=== PATIENT | male | born 1975 | race Two or more races ===

== ENCOUNTER 2018-12-02 07:29 | Emergency (ER) | payer OTHER ==
[~2018-12-02] VITALS: Ht 170.2 cm; Wt 75.0 kg
[2018-12-02] MEDS ORDERED: KETOROLAC 60MG/2ML VIAL IM ONE (08:30)
[2018-12-02 09:17] VITALS: BP 115/62
== END 2018-12-02 09:17 | disposition left against medical advice (07) ==
LOC: ER 07:29
DX: B34.9 Viral infection, unspecified (principal)
CPT/HCPCS: 96372; 99283; J1885

== ENCOUNTER 2019-04-06 11:55 | Emergency (ER) | payer OTHER ==
[~2019-04-06] VITALS: Ht 167.6 cm; Wt 63.0 kg
[2019-04-06] MEDS ORDERED: KETOROLAC 30MG/ML VIAL IV ONE (13:00)
[2019-04-06] MEDS ORDERED: ONDANSETRON HCL 4MG/2ML INJ IV ONE (13:00)
[2019-04-06 13:18] LABS: BASOPHILS % 0.5 % (0.0-2.0); EOSINOPHILS % 2.7 % (0.0-5.0); HEMATOCRIT. 41.8 % (42.0-52.0); HEMOGLOBIN. 14.7 g/dL (14.0-18.0); LYMPHOCYTES % 10.2 % (20.0-50.0); MEAN CORPUSCULAR HEMOGLOBIN 30.1 pg (28.0-32.0); MEAN CORPUSCULAR VOLUME 85.6 fL (80.0-94.0); MEAN PLATELET VOLUME 11.8 fl (7.4-10.4); MONOCYTES % 6.9 % (2.0-8.0); NEUTROPHILS % 79.7 % (40.0-76.0); PLATELET 151 x1000/uL (130-400); RED BLOOD CELL COUNT 4.89 mill/uL (4.7-6.1); RED CELL DISTRIBUTION WIDTH 13.1 % (11.6-14.6)
[2019-04-06 13:21] LABS: CHLORIDE 111 mEq/L (98-107)
[2019-04-06 14:57] VITALS: BP 120/75
== END 2019-04-06 15:12 | disposition home or self-care (01) ==
LOC: ER 13:35
DX: M79.10 Myalgia, unspecified site (principal)
CPT/HCPCS: 36415; 71045; 80048; 85025; 96374; 96375; 99284; J1885; J2405

== ENCOUNTER 2019-06-10 08:45 | Emergency (ER) | payer OTHER ==
[~2019-06-10] VITALS: Ht 165.1 cm; Wt 76.0 kg
[2019-06-10] MEDS ORDERED: IBUPROFEN 600MG TABLET PO STA (10:07)
[2019-06-10] MEDS ORDERED: ASPIRIN 81MG EC TABLET PO ONE (10:30)
[2019-06-10 11:17] LABS: BASOPHILS % 0.6 % (0.0-2.0); EOSINOPHILS % 2.4 % (0.0-5.0); HEMATOCRIT. 42.2 % (42.0-52.0); HEMOGLOBIN. 14.5 g/dL (14.0-18.0); LYMPHOCYTES % 25.7 % (20.0-50.0); MEAN CORPUSCULAR HEMOGLOBIN 29.9 pg (28.0-32.0); MEAN CORPUSCULAR VOLUME 86.7 fL (80.0-94.0); MEAN PLATELET VOLUME 11.2 fl (7.4-10.4); MONOCYTES % 7.1 % (2.0-8.0); NEUTROPHILS % 64.2 % (40.0-76.0); PLATELET 174 x1000/uL (130-400); RED BLOOD CELL COUNT 4.87 mill/uL (4.7-6.1)
[2019-06-10 11:25] LABS: CHLORIDE 111 mEq/L (98-107)
[2019-06-10 14:57] VITALS: BP 120/73
== END 2019-06-10 14:58 | disposition home or self-care (01) ==
LOC: ER 09:05
DX: M25.512 Pain in left shoulder (principal); R07.89 Other chest pain; R00.1 Bradycardia, unspecified
CPT/HCPCS: 36415; 71045; 83880; 84484; 93005; 99284

== ENCOUNTER 2019-09-14 07:34 | Emergency (ER) | payer OTHER ==
[~2019-09-14] VITALS: Ht 165.1 cm; Wt 65.0 kg
[2019-09-14] MEDS ORDERED: IBUPROFEN 600MG TABLET PO ONE (08:45)
[2019-09-14 09:57] VITALS: BP 112/78
== END 2019-09-14 09:50 | disposition home or self-care (01) ==
LOC: ER 07:34
DX: J11.1 Influenza due to unidentified influenza virus with other respiratory manifestations (principal)
CPT/HCPCS: 87804; 99283